=== PATIENT | female | born 2005 | race Hispanic/Latino ===

== ENCOUNTER → 2023-02-28 | Outpatient (CLI) | payer OTHER ==
[2023-02-28 12:19] LABS: HEMATOCRIT 50.1 % (36-48); MEAN CORPUSCULAR HEMOGLOBIN 31.8 pg (27.0-33.0); MEAN CORPUSCULAR HGB CONC 33.5 g/dL (32.0-36.0); MEAN CORPUSCULAR VOLUME 94.7 fL (80-100); RED BLOOD CELL COUNT(AUTO) 5.29 MIL/uL (4.00-5.50); RED CELL DISTRIBUTION WIDTH 11.5 % (11.0-15.5); WHITE BLOOD COUNT (AUTO) 7.5 K/uL (4.8-10.8)
[2023-02-28 13:09] LABS: ALBUMIN 4.5 g/dL (3.5-5.0); BILIRUBIN,DIRECT 0.2 mg/dL (0.0-0.3); BILIRUBIN,TOTAL 1.1 mg/dL (0.2-1.0); CREATININE 0.9 mg/dL (0.5-1.5); POTASSIUM 3.8 mmol/L (3.5-5.1); THYROID STIMULATING HORMONE 1.54 uIU/mL (0.36-3.74); TOTAL PROTEIN, SERUM 8.4 g/dL (6.0-8.3)
[2023-03-01 07:20] LABS: INSULIN, RANDOM OR FASTING 6.6 uIU/mL (2.6-24.9)
[2023-03-01 08:16] LABS: HEPATITIS A ANTIBODY TOTAL Positive (Negative)
[2023-03-01 15:20] LABS: HIV 1&2 ANTIBODY Non-Reactive (Negative); HIV-1 p24 Antigen Non-Reactive (Negative); RAPID PLASMA REAGIN TITER REACTIVE 1:16 (NONREACTIVE)
[2023-03-01 15:24] LABS: RAPID PLASMA REAGIN REACTIVE (NONREACTIVE)
== END | disposition home or self-care (01) ==
LOC: LAB 10:25
PROVIDERS: ATTEND Pediatrics
DX: Z00.01 Encounter for general adult medical examination with abnormal findings (principal); Z72.52 High risk homosexual behavior
CPT/HCPCS: 36415; 80048; 80061; 80076; 83036; 83525; 84443; 85027; 86592; 86701; 86708; 86780; 87390; 87486